=== PATIENT | male | born 1975 | race Caucasian/White ===

== ENCOUNTER 2020-02-02 21:40 | Emergency (ER) | payer OTHER ==
[~2020-02-02] VITALS: Ht 170.2 cm; Wt 126.1 kg
[2020-02-02 22:08] VITALS: BP 137/86; Ht 170.2 cm; Wt 126.1 kg
== END 2020-02-02 22:53 | disposition left against medical advice (07) ==
LOC: ED 21:40
DX: Z53.21 Procedure and treatment not carried out due to patient leaving prior to being seen by health care provider (principal)

== ENCOUNTER 2020-02-03 01:05 | Emergency (ER) | payer OTHER ==
[~2020-02-03] VITALS: Ht 167.6 cm; Wt 126.1 kg
[2020-02-03 01:14] VITALS: BP 125/89; Ht 167.6 cm; Wt 126.1 kg
== END 2020-02-03 02:45 | disposition left against medical advice (07) ==
LOC: ED 01:05
DX: Z53.21 Procedure and treatment not carried out due to patient leaving prior to being seen by health care provider (principal)

== ENCOUNTER 2020-02-03 03:23 | Emergency (ER) | payer OTHER ==
[~2020-02-03] VITALS: Ht 170.2 cm; Wt 124.5 kg
[2020-02-03 03:27] VITALS: Ht 170.2 cm; Wt 124.5 kg
[2020-02-03 07:06] VITALS: BP 146/87
== END 2020-02-03 07:07 | disposition home or self-care (01) ==
LOC: ED 03:23
DX: S86.911A Strain of unspecified muscle(s) and tendon(s) at lower leg level, right leg, initial encounter (principal); X58.XXXA Exposure to other specified factors, initial encounter; Y93.89 Activity, other specified; Y92.89 Other specified places as the place of occurrence of the external cause; Y99.8 Other external cause status
CPT/HCPCS: J1885